=== PATIENT | male | born 1940 | race Caucasian/White ===

== ENCOUNTER → 2019-06-02 14:50 | Outpatient (CLI) | payer MEDICARE, BC ==
[2019-06-02 17:59] LABS: PRO BNP 2263 pg/mL (0-450)
[2019-06-02 18:15] LABS: TROPONIN-I < 0.017 ng/mL (0.000-0.060)
== END | disposition home or self-care (01) ==
LOC: D.LABREF 14:50
PROVIDERS: ATTEND Internal Medicine Pulmonary Disease
DX: N18.9 Chronic kidney disease, unspecified (principal); R06.00 Dyspnea, unspecified

== ENCOUNTER → 2019-08-16 09:06 | Outpatient (CLI) | payer MEDICARE, BC | END | disposition home or self-care (01) | LOC: D.RT 09:06 | PROVIDERS: ATTEND Internal Medicine Pulmonary Disease | DX: R06.00 Dyspnea, unspecified (principal) ==

== ENCOUNTER → 2019-09-15 15:36 | Outpatient (CLI) | payer MEDICARE, BC ==
[2019-09-15 16:59] LABS: ANION GAP 12.2 mmol/L (8-16); CALCIUM 8.8 mg/dL (8.5-10.1); CARBON DIOXIDE 27.7 mmol/L (21.0-32.0); CREATININE - SERUM 2.5 mg/dL (0.6-1.3); POTASSIUM - SERUM 4.9 mmol/L (3.5-5.1)
== END | disposition home or self-care (01) ==
LOC: D.LABREF 15:36
PROVIDERS: ATTEND Internal Medicine Pulmonary Disease
DX: N18.9 Chronic kidney disease, unspecified (principal)

== ENCOUNTER → 2020-03-07 12:31 | Outpatient (CLI) | payer MEDICARE, BC | END | disposition home or self-care (01) | LOC: D.LABREF 12:31 | PROVIDERS: ATTEND Internal Medicine Pulmonary Disease | DX: Z11.59 Encounter for screening for other viral diseases (principal) ==

== ENCOUNTER → 2020-03-09 10:02 | Outpatient (CLI) | payer MEDICARE, BC ==
[2020-03-09 10:42] LABS: ANION GAP 13.7 mmol/L (8-16); CALCIUM 8.6 mg/dL (8.5-10.1); CARBON DIOXIDE 25.4 mmol/L (21.0-32.0); CREATININE - SERUM 2.7 mg/dL (0.6-1.3); POTASSIUM - SERUM 4.1 mmol/L (3.5-5.1)
== END | disposition home or self-care (01) ==
LOC: D.ECHO 01-05 09:00
PROVIDERS: ATTEND Internal Medicine Pulmonary Disease
DX: R06.00 Dyspnea, unspecified (principal); N18.9 Chronic kidney disease, unspecified